=== PATIENT | male | born 1990 | race Caucasian/White ===

== ENCOUNTER 2016-11-26 13:36 | Emergency (ER) | payer MEDICAID ==
[~2016-11-26] VITALS: Ht 175.3 cm; Wt 101.6 kg
[2016-11-26 13:40] VITALS: BP 145/90
== END 2016-11-26 16:13 | disposition home or self-care (01) ==
LOC: ED 13:36
DX: S50.812A Abrasion of left forearm, initial encounter (principal); S50.811A Abrasion of right forearm, initial encounter; S80.812A Abrasion, left lower leg, initial encounter; S80.811A Abrasion, right lower leg, initial encounter; V23.4XXA Motorcycle driver injured in collision with car, pick-up truck or van in traffic accident, initial encounter; Y93.55 Activity, bike riding; Y99.8 Other external cause status; Y92.411 Interstate highway as the place of occurrence of the external cause